=== PATIENT | male | born 2000 | race Caucasian/White ===

== ENCOUNTER 2023-08-27 15:12 | Emergency (ER) | payer SELFPAY ==
[2023-08-27 15:17] VITALS: BP 166/98; PULSE 87; RESP 18; TEMP 36.5; O2SAT 99
--- NOTE | 2023-08-27 15:58 | ED.SKABFB ---
HPI - Skin/Abscess/Foreign Bdy General Chief complaint: Skin/Abscess/Foreign Body Stated complaint: ingrown toenail left great toe Time Seen by Provider: 08/27/23 15:33 History of Present Illness HPI narrative: Patient is a 22-year-old male who presents ER with an ingrown toenail of the left great toe. Ongoing for weeks. He has had purulent drainage that comes out when he is walking. No lymphangitic streaking. No fevers chills or sweats. Tried moving part of his toenail but did not fix his issue. He has not been on antibiotics. Review of Systems Constitutional: Constitutional: Denies chills and Denies fever(s) Musculoskeletal: Comments: Left great toe infection PMFSH Past Medical History Medical History (Updated 08/27/23 @ 16:16 by Galen Wallace MD) Healthy adult male Surgical History Surgical History (Updated 08/27/23 @ 16:16 by Galen Wallace MD) No history of previous surgery Exam Narrative: GENERAL: Well-appearing, well-nourished, and in no acute distress. HEAD: Normocephalic, atraumatic. EXTREMITIES: Ingrown toenail left great toe with small area of purulent discharge medially SKIN: Warm, dry, no rash. NEURO: Alert and oriented x3. PSYCH: Normal mood and affect. Course Course Emergency Course: Before patient could be discharged he walked out of the ER. We could not send prescriptions to his pharmacy because he did not choose one, we also do not know any of his drug allergies. Additionally we were not able to provide him the work note he requested. Vital Signs Vital signs: Vital Signs Temperature 97.7 F 08/27/23 15:17 Pulse Rate 87 08/27/23 15:17 Respiratory Rate 18 08/27/23 15:17 Blood Pressure 166/98 H 08/27/23 15:17 Pulse Oximetry 99 08/27/23 15:17 Oxygen Delivery Room Air 08/27/23 15:17 Temperature 97.7 F 08/27/23 15:17 Pulse Rate 87 08/27/23 15:17 Respiratory Rate 18 08/27/23 15:17 Blood Pressure 166/98 H 08/27/23 15:17 Pulse Oximetry 99 08/27/23 15:17 Oxygen Delivery Room Air 08/27/23 15:17 Discharge Plan Discharge Clinical Impression: Ingrowing toenail with infection Patient Disposition: Home, Self-Care Condition: Stable Instructions: Ingrown Nail (ED) Follow-up/Referrals: PHYSICIAN,MACHINE [employer] [Primary Care Provider] -
--- NOTE | 2023-08-27 16:17 | PC.NURSE ---
Pt left without notice
== END 2023-08-27 16:20 | disposition home or self-care (01) ==
PROVIDERS: Emergency Provider Emergency Medicine
DX: L60.0 Ingrowing nail (principal)
CPT/HCPCS: 99281